=== PATIENT | male | born 1985 | race Caucasian/White ===

== ENCOUNTER 2022-06-17 14:10 | Emergency (ER) | payer OTHER, SELFPAY ==
[2022-06-17 14:17] VITALS: BP 127/79; PULSE 77; RESP 18; TEMP 36.6; O2SAT 97; BMI 33.3
--- NOTE | 2022-06-17 15:19 | ED.BURNSMOKE ---
HPI - Burn/Smoke Inhalation General Chief complaint: Burn/Smoke Inhalation Stated complaint: work inj. chemicals touched body Time Seen by Provider: 06/17/22 15:09 Source: patient Mode of arrival: ambulatory Limitations: no limitations History of Present Illness HPI Narrative: 37 y/o healthy male presents to the ER for evaluation of a hydrofluoric acid burn to his stomach. 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 He reports he immediately took his T-shirt off and irrigated the area with water for about 15 minutes. He reports initially there was a blister over the area but is no longer present. He was provided calcium gluconate gel and and applied topically immediately after. He was sent to the emergency room for evaluation with his MSDS sheet. On arrival to the ER patient denies any pain to the area. He has a small area on his abdominal wall approximately 3 cm x 3 cm with slight erythema. MD Complaint: burn Onset (ago): hour(s) Type of Exposure: chemical Smoke Inhalation: none Place: industrial Location: abdomen Severity: mild Severity scale (1-10): 3 Associated symptoms: denies other symptoms Treatment Prior to Arrival: dressings and other (Calcium gluconate gel) Related Data Allergies Allergy/AdvReac Type Severity Reaction Status Date / Time No Known Allergies Allergy Verified 06/17/22 14:17 Review of Systems Review of Systems: Constitutional: No Fever, No Chills Cardiovascular: No Chest Pain, No SOB Respiratory: No Cough, No Sputum Gastrointestinal: No Nausea, No Vomiting, No abdominal Pain Musculoskeletal: No joint pain, No Myalgias Skin: + Skin Lesions, No rash Neuro: No Weakness, No Numbness, No Dizziness, No Headache Psych: + Anxiety/Panic, No Depression Heme/Lymph: No Bruising, No Lymphadenopathy PMFSH Social History Social History Advance Directives: No Advance Directives Information Provided: No Physical Exam Vital Signs: Vital Signs: Last Vital Signs Temp 97.9 F 06/17/22 14:17 Pulse 77 06/17/22 14:17 Resp 18 06/17/22 14:17 BP 127/79 06/17/22 14:17 Pulse Ox 97 06/17/22 14:17 O2 Del Method 06/17/22 14:17 BMI result Body Mass Index 33.3 Appearance: Alert. Oriented X3. No acute distress. HEENT: normal inspection CVS: Normal heart rate and rhythm. Pulses normal. Respiratory: No respiratory distress. Skin: Skin warm and dry. Normal skin color. Normal skin turgor. On his abdominal wall there is a irregularly shaped 3 cm x 3 cm area just below and to the left of his umbilicus that is consistent with a chemical burn. No blisters, no tenderness to the area. Extremities: normal inspection, atraumatic x4. Neuro: Oriented X 3. No motor deficit. No sensory deficit. Course Course Course Narrative: 37-year-old male presents to the ER for evaluation of a hydrofluoric acid burn on his abdominal wall. HF 48-51% concentration per his documentation. Given the complex nature of hydrofluoric comer and their potential complaications, will plan to check CMP, CBC, CPK, EKG and treat with IV glucagon. Topical Calcium gluconate gel applied. Reevaluation(s) Reevaluation #1: Labs WNL, Ca++ 10.2 Continues to be painfree. EKG normal. Patient counseled - he has 2 tubes of calcium gluconate gel. Advised to use 6 times per day for the next 3-4 days. Stable for d/c home. MDM - Burn/Smoke Inhalation Medical Records Attestation: I reviewed the patient's medical records. Lab Data Attestation: I reviewed the patient's lab results. Result diagrams: 06/17/22 16:00 06/17/22 16:00 Labs: Lab Results 06/17/22 06/17/22 Range/Units 16:00 16:00 WBC 7.1 (4.8-10.8) X10*3/uL RBC 5.32 (4.60-5.80) X10*6/uL Hgb 15.0 (14.0-18.0) g/dl Hct 44.4 (42.0-52.0) % MCV 83.5 (80.0-98.0) fL MCH 28.2 (27.0-33.0) pg MCHC 33.8 (31.0-36.0) g/dl RDW 13.7 (11.0-16.0) % Plt Count 223 (160-400) X10*3/uL MPV 10.1 (9.4-12.4) fL Immature Gran % (Auto) 0.4 (0.0-0.4) % Neut % (Auto) 58.1 (45-73) % Lymph % (Auto) 30.6 (20-40) % Daniels % (Auto) 8.3 (2-11) % Eos % (Auto) 2.0 (0-4) % Baso % (Auto) 0.6 (0-2) % Lymph # (Auto) 2.2 (1.2-4.9) X10*3/uL Daniels # (Auto) 0.6 (0.1-1.2) X10*3/uL Eos # (Auto) 0.1 (0.0-0.4) X10*3/uL Baso # (Auto) 0.0 (0.0-0.2) X10*3/uL Abs Immat Gran (auto) 0.03 (0.00-0.03) X10*3/uL Absolute Neuts (auto) 4.1 (2.0-8.3) x10*3/uL Absolute Nucleated RBC 0.000 (0.0-0.012) X10*3/uL Nucleated RBC % (auto) 0.0 (0.0-0.2) /100WBC Sodium 142 (135-145) mmol/L Potassium 4.6 (3.3-5.1) mmol/L Chloride 104 (96-108) mmol/L Carbon Dioxide 26 (22-29) mmol/L Anion Gap 17 (12-20) BUN 12 (9-16) mg/dL Creatinine 0.99 (0.5-1.4) mg/dL Estim Creat Clear Calc 106.7 Estimated GFR > 60 Random Glucose 106 (60-115) mg/dL Calcium 10.2 (8.4-10.2) mg/dL Phosphorus 3.6 (2.7-4.5) mg/dL Magnesium 2.4 (1.6-2.6) mg/dL Total Creatine Kinase 381 H (38-174) U/L ECG Data Attestation: I personally reviewed and interpreted this ECG as follows: ECG interpretation date: 06/17/22 Prior ECG tracings: not available for review Interpretation: Sinus bradycardia, ventricular rate 59 beats per minute, normal [place] interval, normal QRS, normal QTC, normal QT Critical Care Time Critical Care Time Critical Care Time: No Discharge Plan Discharge Clinical Impression: Accidental exposure to hydrofluoric acid Patient Disposition: Home, Self-Care Additional Instructions: Continue to use the Calcium Gluconate gel topically 6 times per day for the next 4 days If you have worsening pain to the area, muscle cramping or any concerning signs or symptoms Stand Alone Forms: Work/School Release Interventions: ED Discharge Assessment Last Done: 06/17/22 17:38 Discharge Date/Time: 06/17/22 17:41
--- NOTE | 2022-06-17 15:36 | ECG_ITS ---
Test Reason : toxic burn Blood Pressure : / mmHG Vent. Rate : 059 BPM Atrial Rate : 059 BPM P-R Int : 140 ms QRS Dur : 092 ms QT Int : 380 ms P-R-T Axes : 047 035 052 degrees QTc Int : 376 ms Sinus bradycardia Nonspecific ST abnormality Abnormal ECG No previous ECGs available Referred By: Zoila Yeung Electronically Signed By:DEB SANDOVAL
[2022-06-17 16:04] LABS: MANUAL DIFF FLAG NO
[2022-06-17 16:11] LABS: Basophils Percent Auto 0.6 % (0-2); Eosinophils Absolute Auto 0.1 X10*3/uL (0.0-0.4); Hematocrit 44.4 % (42.0-52.0); Imm Gran Abs Auto 0.03 X10*3/uL (0.00-0.03); Imm Gran Pct Auto 0.4 % (0.0-0.4); Lymphocytes Absolute Auto 2.2 X10*3/uL (1.2-4.9); Lymphocytes Percent Auto 30.6 % (20-40); Mean Corpuscular HGB Conc 33.8 g/dl (31.0-36.0); Mean Corpuscular Hemoglobin 28.2 pg (27.0-33.0); Mean Corpuscular Volume 83.5 fL (80.0-98.0); Mean Platelet Volume 10.1 fL (9.4-12.4); Monocytes Absolute Auto 0.6 X10*3/uL (0.1-1.2); Monocytes Percent Auto 8.3 % (2-11); Neutrophils Absolute Auto 4.1 x10*3/uL (2.0-8.3); Neutrophils Percent Auto 58.1 % (45-73); Platelet Count 223 X10*3/uL (160-400); Red Blood Count 5.32 X10*6/uL (4.60-5.80); Red Cell Distribution Width 13.7 % (11.0-16.0); White Blood Count 7.1 X10*3/uL (4.8-10.8)
[2022-06-17] MEDS: Calcium Gluconate/NaCl,Iso-Osm 1 GM/50 ML PLAST..BAG IV (16:14)
[2022-06-17 16:27] LABS: Anion Gap 17 (12-20); Blood Urea Nitrogen 12 mg/dL (9-16); Calcium 10.2 mg/dL (8.4-10.2); Carbon Dioxide 26 mmol/L (22-29); Chloride 104 mmol/L (96-108); Creatinine Clr Calc Pharmacy 106.7; Estimated Glomerular Filt Rate > 60; Glucose Random 106 mg/dL (60-115); Magnesium 2.4 mg/dL (1.6-2.6); Phosphorus 3.6 mg/dL (2.7-4.5); Potassium 4.6 mmol/L (3.3-5.1); Sodium 142 mmol/L (135-145)
== END 2022-06-17 17:41 | disposition home or self-care (01) ==
PROVIDERS: Physician Assistant; Emergency Provider Emergency Medicine
DX: T54.2X1A Toxic effect of corrosive acids and acid-like substances, accidental (unintentional), initial encounter (principal); T21.62XA Corrosion of second degree of abdominal wall, initial encounter; T32.0 Corrosions involving less than 10% of body surface; Y93.89 Activity, other specified; Y92.513 Shop (commercial) as the place of occurrence of the external cause; Y99.0 Civilian activity done for income or pay
CPT/HCPCS: 16000; 36415; 80048; 82550; 83735; 84100; 85025; 93005; 96365; 99284; J0610